=== PATIENT | male | born 1950 | race Caucasian/White ===

== ENCOUNTER 2024-08-11 13:57 | Outpatient (CLI) | payer MEDICARE, OTHER | END 2024-08-11 13:58 | disposition home or self-care (01) | LOC: CSHMRI 13:57 | PROVIDERS: ATTEND Orthopaedic Surgery Hand Surgery | DX: S63.592A Other specified sprain of left wrist, initial encounter (principal); M92 Other juvenile osteochondrosis; M25.432 Effusion, left wrist; M24.132 Other articular cartilage disorders, left wrist; M18.9 Osteoarthritis of first carpometacarpal joint, unspecified; M19.032 Primary osteoarthritis, left wrist ==